=== PATIENT | male | born 1965 | race Caucasian/White ===

== ENCOUNTER 2018-12-27 16:58 | Emergency (ER) | payer OTHER, BC ==
[~2018-12-27] VITALS: Ht 180.3 cm; Wt 95.2 kg
[2018-12-27] MEDS ORDERED: NAPROSYN500 MG PO (18:56)
[2018-12-27] MEDS ORDERED: CYCLOBENZAPRINE5 MG PO (18:56)
== END 2018-12-27 19:32 | disposition home or self-care (01) ==
LOC: ED 16:58
DX: S46.811A Strain of other muscles, fascia and tendons at shoulder and upper arm level, right arm, initial encounter (principal); Z88.0 Allergy status to penicillin; X50.1XXA Overexertion from prolonged static or awkward postures, initial encounter; Y93.89 Activity, other specified
CPT/HCPCS: 73030; 99283